=== PATIENT | male | born 1965 | race Caucasian/White ===

== ENCOUNTER 2020-07-16 10:23 | Outpatient (CLI) | payer OTHER, SELFPAY ==
--- NOTE | 2020-07-16 11:00 | USCV_ITS ---
Pierre Sigala Age: 54 Gender: M : 1965 Exam Date: 07/16/2020 10:52 Ordering Phys: Tavia Petersen MD ([email or web address]) Technologist: Alanna Reynolds Exam Location: [facility] [place] Indication: CHEST PAIN, HTN BP: / HR: 60 Rhythm: Sinus Technical Quality: Adequate MEASUREMENTS (Male / Female) Normal Values 2D ECHO LV Diastolic Diameter PLAX 4.5 cm 4.2 - 5.9 / 3.9 - 5.3 cm LV Systolic Diameter PLAX 2.6 cm IVS Diastolic Thickness 1.6 cm 0.6 - 1.0 / 0.6 - 0.9 cm IVS Systolic Thickness 1.7 cm LVPW Diastolic Thickness 1.3 cm 0.6 - 1.0 / 0.6 - 0.9 cm LVPW Systolic Thickness 2.3 cm LVOT Diameter 2.0 cm LV Ejection Fraction 2D Teich 74.1 % LA Diameter 3.3 cm LA Width 2.3 cm LA Height 5.4 cm RA Width 3.0 cm RA Height 5.1 cm Aorta at Sinotubular Diameter 3.4 cm M-MODE LV Diastolic Diameter MM 5.0 cm 4.2 - 5.9 / 3.9 - 5.3 cm LV Systolic Diameter MM 2.8 cm LV Ejection Fraction MM Teich 75.7 % IVS Diastolic Thickness MM 1.2 cm 0.6 - 1.0 / 0.6 - 0.9 cm IVS Systolic Thickness MM 1.9 cm LVPW Diastolic Thickness MM 1.2 cm 0.6 - 1.0 / 0.6 - 0.9 cm LVPW Systolic Thickness MM 1.9 cm Aortic Annulus Diameter 3.9 cm LA Ao Ratio MM 0.8 MV E Point Septal Separation 0.3 cm DOPPLER AV Peak Velocity 137.0 cm/s LVOT Peak Velocity 123.0 cm/s AV Area Cont Eq vti 3.2 cm squared AV Area Cont Eq pk 2.9 cm squared MV Peak Velocity 98.0 cm/s MV Area PHT 5.4 cm squared Mitral E to A Ratio 1.0 MV E' Velocity 52.0 cm/s Mitral E to MV E' Ratio 10.2 Mitral E to LV E' Lateral Ratio 9.2 Mitral E to LV E' Septal Ratio 11.4 TR Peak Velocity 80.0 cm/s TR Peak Gradient 2.6 mmHg Right Atrial Pressure 3.0 mmHg Pulmonary Artery Systolic Pressu 5.6 mmHg PV Peak Velocity 99.0 cm/s RV Acceleration Time 0.1 s RV Ejection Time 0.3 s RV AcT/ET 0.2 FINDINGS Left Ventricle Normal left ventricular size, systolic function and increased wall thickness, with no regional wall motion abnormalities. Mild concentric left ventricular hypertrophy. Left ventricular ejection fraction is estimated at 65 %. Normal diastolic function. Right Ventricle Normal right ventricular size and systolic function. Right ventricular systolic pressure 5.6 mmHg. Right Atrium Normal right atrial size. Left Atrium Normal left atrial size. Mitral Valve Structurally normal mitral valve. No mitral valve stenosis. No mitral valve regurgitation. Aortic Valve Structurally normal trileaflet aortic valve. No aortic valve stenosis. Mild aortic valve regurgitation. Tricuspid Valve Structurally normal tricuspid valve. No tricuspid valve stenosis. Trace tricuspid valve regurgitation. Pulmonic Valve Structurally normal pulmonic valve. Trace pulmonary valve regurgitation. Pericardium No pericardial effusion. Aorta Normal size aortic root and proximal ascending aorta. CONCLUSIONS 1. Normal left ventricular size, systolic function and increased wall thickness, with no regional wall motion abnormalities. Mild concentric left ventricular hypertrophy. Left ventricular ejection fraction is estimated at 65 %. Normal diastolic function. 2. Mild aortic valve regurgitation. 3. Normal pulmonary artery pressure. 4. No prior similar studies to compare. Tavia Petersen MD (Electronically Signed) Final Date: 18 July 2020 16:26 S
== END 2020-07-16 10:24 | disposition home or self-care (01) ==
PROVIDERS: PCP Family Medicine; Visit Provider Internal Medicine Cardiovascular Disease
DX: R07.9 Chest pain, unspecified (principal); I10 Essential (primary) hypertension; R00.2 Palpitations; I35.1 Nonrheumatic aortic (valve) insufficiency
CPT/HCPCS: 93306

== ENCOUNTER 2021-01-19 13:45 | Outpatient (CLI) | payer OTHER, SELFPAY ==
--- NOTE | 2021-01-19 13:57 | MR_ITS ---
WS: [id number] MRI RIGHT SHOULDER NONCONTRAST TECHNIQUE: Sagittal T2, coronal T1, T2 and proton density imaging. Axial gradient PDE imaging. CLINICAL INFORMATION: RIGHT SHOULDER IMPINGEMENT SYNDROME, RIGHT SHOULDER PAIN COMPARISON: None. FINDINGS: Some images degraded by patient motion. Mild degenerative arthritis AC joint with mild edema. Narrowi ng of the subacromial space. Slight subacromial spurring. Mild downsloping acromion. Slight impingeme nt on the distal supraspinatus with tendinopathy and chronic thinning. Tiny undersurface tear distal supraspinatus. Tiny insertional tear. Normal infraspinatus. Normal teres minor. Normal subscapularis. Distal subscapularis is normal in appearance. Biceps tendon is intact within the bicipital groove. Intra-articular biceps tendon appears intact. Biceps labral anchor appears intact. Degenerative frayi ng of the glenoid labrum. Normal bone marrow signal in the humerus and glenoid. Small amount of subac romial/subdeltoid fluid. Lobulated intraosseous ganglion cyst distal clavicle measuring 10 x 9 mm MR/MR shoulder RT wo con* [id number] IMPRESSION: 1. Moderate degenerative arthritis at the AC joint with edema and mild downslo ping of the acromion with subacromial spurring. Intraosseous ganglion cyst dist al clavicle measuring 10 x 9 mm. 2. Chronic thinning of the distal supraspinatus with tendinopathy. Tiny unders urface tear distally. Tiny insertional tear. 3. Rotator cuff is otherwise unremarkable. No full-thickness tears. 4. Biceps tendon intact within the bicipital groove. 5. Degenerative fraying of the glenoid labrum. 6. No other significant findings.
== END 2021-01-19 13:46 | disposition home or self-care (01) ==
PROVIDERS: PCP Family Medicine; Visit Provider Family Medicine
DX: M75.41 Impingement syndrome of right shoulder (principal); M25.511 Pain in right shoulder; M19.011 Primary osteoarthritis, right shoulder
CPT/HCPCS: 73221

== ENCOUNTER 2021-06-09 07:22 | Outpatient (CLI) | payer OTHER, SELFPAY ==
[2021-06-09 07:50] LABS: Basophils % 0.7 %; Eosinophils # 0.3 10^3/uL (0.0-0.8); Hematocrit 39.9 % (42.0-52.0); Hemoglobin 13.9 g/dL (11.7-16.6); Lymphocytes # 1.5 10^3/uL (0.8-4.8); Lymphocytes % 26.7 %; Mean Corpuscular HGB Conc 34.8 g/dL (30.0-36.0); Mean Corpuscular Hemoglobin 31.2 pg (28.0-34.0); Mean Corpuscular Volume 89.5 fl (80-94); Mean Platelet Volume 10.9 fL (7.4-10.4); Monocytes # 0.6 10^3/uL (0.2-0.9); Neutrophils % 57.1 %; Nucleated Red Blood Cells % 0 %; Platelet Count 142 10^3/cmm (130-400); Red Blood Count 4.46 10^6/uL (4.1-5.3); Red Cell Distribution Width 11.6 % (12.1-15.1); White Blood Count 5.6 10^3/uL (4.0-10.0)
[2021-06-09 08:16] LABS: Alanine Aminotransferase 39 U/L (0-41); Albumin Level 4.3 g/dL (3.5-5.2); Alkaline Phosphatase 60 IU/L (40-130); Anion Gap 16.9 (5-19); Aspartate Amino Transferase 42 U/L (0-40); Blood Urea Nitrogen 17 mg/dL (6-20); Calcium 9.4 mg/dL (8.5-10.5); Carbon Dioxide 23 mmol/L (22-29); Chloride 100 mmol/L (98-107); Chol HDL Ratio 3.55 mg/dL (1.0-5.00); Cholesterol 188 mg/dL (0-200); Globulin 2.9 g/dL (1.3-4.6); Glomerular Filtration Rate 78.2 mL/min (90-130); Glucose 121 mg/dL (65-115); HDL Cholesterol 53 mg/dL (60-100); LDL Cholesterol Calculated 63 mg/dL (50-129); LDL HDL Ratio 1.19 RATIO (0.00-3.22); Osmolality Calculated 285 mOsm/kg (285-295); Potassium 3.9 mmol/L (3.5-5.1); Sodium 136 mmol/L (136-145); Total Bilirubin 0.6 mg/dL (0.15-1.2); Total Protein 7.2 g/dL (6.6-8.7); Triglycerides 358 mg/dL (0-150)
== END 2021-06-09 07:23 | disposition home or self-care (01) ==
LOC: LAB 07:26
PROVIDERS: PCP Family Medicine; Visit Provider Internal Medicine Cardiovascular Disease
DX: E78.5 Hyperlipidemia, unspecified (principal); I10 Essential (primary) hypertension; I51.7 Cardiomegaly; R00.0 Tachycardia, unspecified; R07.9 Chest pain, unspecified
CPT/HCPCS: 36415; 80053; 80061; 85025

== ENCOUNTER 2021-07-14 08:39 | Outpatient (CLI) | payer OTHER, SELFPAY ==
--- NOTE | 2021-07-14 08:49 | US_ITS ---
WS: [id number] Complete ABDOMINAL ULTRASOUND HISTORY: ABNORMAL LIVER FUNCTION TESTS COMPARISON: None available. Liver: 15.3 cm in length. Mildly prominent liver with mild coarse echotexture. No mass or bile duct d ilatation. Portal Vein: Normal hepatopetal flow with monophasic waveform. Gallbladder: Normally distended with no gallstones, wall thickening or pericholecystic fluid. Gallbladder wall thickness: 0.1 cm. Pancreas: Normal size and echogenicity. CBD: 0.5 cm. Right kidney: 10.6 cm x 6.2 cm x 4.8 cm. No mass, cortical thickening or hydronephrosis. Left kidney: 13.6 cm x 4.7 cm x 5.1 cm. No mass, cortical thickening or hydronephrosis. Spleen: Normal size and echogenicity. Abdominal aorta and IVC are within normal limits. No ascites. US/US abdomen complete* [id number] IMPRESSION: 1. Mild hepatic steatosis. No bile duct dilatation or mass. 2. Negative gallbladder. 3. Otherwise unremarkable abdomen ultrasound.
== END 2021-07-14 08:40 | disposition home or self-care (01) ==
PROVIDERS: PCP Family Medicine; Visit Provider Family Medicine
DX: R94.5 Abnormal results of liver function studies (principal); K76.0 Fatty (change of) liver, not elsewhere classified
CPT/HCPCS: 76700

== ENCOUNTER 2021-08-01 12:02 | Emergency (ER) | payer OTHER, SELFPAY ==
[2021-08-01 12:08] VITALS: PULSE 54; RESP 18; TEMP 37; O2SAT 98; BMI 30.7
[2021-08-01 12:20] VITALS: BP 168/120
--- NOTE | 2021-08-01 13:24 | W.ED.CHESTPA ---
HPI - Chest Pain General: Chief Complaint: Chest Pain Stated Complaint: CP Time Seen by Provider: 08/01/21 13:24 History of Present Illness: Mr. Sigala is a 55-year-old gentleman with significant past medical history of hypertension, hyperlipidemia, and history of chest pain who presents to the emergency department due to chest pain. He reports pressure in the left lower chest that started with exertion while at work. He notes associated diaphoresis, shortness of breath, nausea. He reports symptoms at worst were moderate to severe however subsequently improved. Over the past few days he has noticed more frequent episodes though does have a history of similar episodes overall in the past. Each time he does notice his blood pressure is higher than normal and this does seem to correlate with symptoms though not reliably. No other specific changes in health, exacerbating, or alleviating factors identified. Onset (ago): day(s) Timing of current episode: constant Prior episodes: Yes Onset: during exertion Pain location: left chest Severity: moderate Quality: tightness Relieving factors: nothing Exacerbating factors: nothing Review of Systems General: Reports: 10 or more systems reviewed and unremarkable except in HPI and below PFSH ED PFSH: Medical History Hyperlipidemia Hypertension Family History Other FH: CABG (coronary artery bypass surgery) Sleep apnea Denies family history of Diabetes CAD (coronary artery disease) Stroke Social History Smoking and tobacco status: never smoked Alcohol intake: current Alcohol intake frequency: 3 or more drinks per day Physical Exam Const: COMMON NORMALS: alert GENERAL APPEARANCE: cooperative and well developed HENMT: COMMON NORMALS: normocephalic and atraumatic HEAD & SCALP: normocephalic and atraumatic Eye: COMMON NORMALS: conjunctivae normal CONJUNCTIVA: Yes conjunctivae normal SCLERA: sclerae normal Neck/C-Spine: COMMON NORMALS: supple GENERAL: Yes trachea midline Resp: COMMON NORMALS: clear to auscultation bilaterally EFFORT & INSPECTION: Yes able to speak in complete sentences AUSCULTATION: clear to auscultation bilaterally Cardio: COMMON NORMALS: regular rate and regular rhythm RATE: regular rate RHYTHM: regular rhythm GI: COMMON NORMALS: Soft to palpation PALPATION: Yes Soft to palpation and No Tenderness to palpation present (GI) PERCUSSION: normal to percussion Extremity: GENERAL: Yes normal exam except as noted and No edema Neuro: COMMON NORMALS: moves all extremities SENSORIUM/ORIENTATION: Yes alert and No Orientation impaired Psych: COMMON NORMALS: mental status grossly normal and Normal thought process present THOUGHT PROCESS: Normal thought process present Course ED course: - Patient was seen and evaluated by me at bedside - Patient placed on cardiac monitors, IV access obtained - Initial evaluation notable for exam as above. - Labs and xrays personally interpreted by me. EKG reviewed with sinus rhythm showing nonspecific ST segment abnormalities. No STEMI. -Aspirin given - Labs notable for no leukocytosis, normal hemoglobin. No acute metabolic derangement to explain symptoms. Negative delta troponin. - Imaging notable for no lobar consolidation or pneumothorax - Upon serial reexamination after treatment the patient was similar with continued improvement. - Based on patient history, evaluation, and testing as interpreted the most likely cause of the patient's condition is chest pain - The results of ED evaluation were discussed with the patient including possible disposition options. I discussed heart heart score restratification and recommended admission as the safest option given moderate risk heart score however the patient preferred outpatient follow-up. I discussed prescriptions and/or symptomatic cares (if applicable) including appropriate and responsible use, followup plan, and return precautions. The patient verbalized understanding and felt safe for discharge. - Patient discharged in satisfactory condition. Note: Click bubbles or prepopulated palacios in note writing are used for assistance with data collection and billing and are inherently more limited than narrative and other text portions of this note. Please use narrative for additional clinical history and defer to narrative/free test for any case of contradictory information. If information appears in only free text or click bubble it should be considered present or absent as reported. Please contact note financial writer for clarifications of clinical information or contradictory information. MDM is a brief summary, contradictory or erroneous seeming information should be clarified and full note should be reviewed. Vital Signs: Vital signs: Vital Signs Temperature 98.6 F 08/01/21 12:08 Pulse Rate 88 08/01/21 18:02 Respiratory Rate 18 08/01/21 18:02 Blood Pressure 179/96 08/01/21 18:02 Pulse Oximetry 96 08/01/21 18:02 MDM - Chest Pain Medical Decision Making 55-year-old gentleman presenting with more frequent chest pain than baseline. Negative delta troponin, negative ED evaluation for obvious cause. Offered admission which the patient declined in favor of outpatient follow-up. Satisfactory for discharge with additional antihypertensive. Medical Records I reviewed the patient's medical records. Lab Data I reviewed the patient's lab results. : 08/01/21 13:30 08/01/21 14:36 Radiology Impressions Chest X-Ray 08/01/21 13:28 Impression: Old granulomatous disease. Laboratory Results WBC 7.7 10^3/uL (4.0-10.0) 08/01/21 13:30 RBC 4.72 10^6/uL (4.1-5.3) 08/01/21 13:30 Hgb 14.7 g/dL (11.7-16.6) 08/01/21 13:30 Hct 46.3 % (42.0-52.0) 08/01/21 13:30 MCV 98.1 fl (80-94) H 08/01/21 13:30 MCH 31.1 pg (28.0-34.0) 08/01/21 13:30 MCHC 31.7 g/dL (30.0-36.0) 08/01/21 13:30 RDW 18.6 % (12.1-15.1) H 08/01/21 13:30 Plt Count 180 10^3/cmm (130-400) 08/01/21 13:30 MPV 10.5 fL (7.4-10.4) H 08/01/21 13:30 Neut % (Auto) 67.8 % 08/01/21 13:30 Lymph % (Auto) 19.8 % 08/01/21 13:30 [place] % (Auto) 9.7 % 08/01/21 13:30 Eos % (Auto) 1.6 % 08/01/21 13:30 Baso % (Auto) 0.5 % 08/01/21 13:30 Neut # (Auto) 5.24 10^3/uL (1.8-7.7) 08/01/21 13:30 Lymph # (Auto) 1.5 10^3/uL (0.8-4.8) 08/01/21 13:30 [place] # (Auto) 0.8 10^3/uL (0.2-0.9) 08/01/21 13:30 Eos # (Auto) 0.1 10^3/uL (0.0-0.8) 08/01/21 13:30 Baso # (Auto) 0.0 10^3/uL (0.0-0.1) 08/01/21 13:30 Nucleated RBC % (auto) 0 % 08/01/21 13:30 Nucleated RBCs # 0.0 /100WBC 08/01/21 13:30 Sodium 136 mmol/L (136-145) 08/01/21 14:36 Potassium 3.6 mmol/L (3.5-5.1) 08/01/21 14:36 Chloride 99 mmol/L (98-107) 08/01/21 14:36 Carbon Dioxide 22 mmol/L (22-29) 08/01/21 14:36 Anion Gap 18.6 (5-19) 08/01/21 14:36 BUN 14 mg/dL (6-20) 08/01/21 14:36 Creatinine 0.8 mg/dL (0.7-1.2) 08/01/21 14:36 GFR Calculation 101.1 mL/min (90-130) 08/01/21 14:36 Glucose 102 mg/dL (65-115) 08/01/21 14:36 Calculated Osmolality 283 mOsm/kg (285-295) L 08/01/21 14:36 Calcium 8.6 mg/dL (8.5-10.5) 08/01/21 14:36 Total Bilirubin 0.6 mg/dL (0.15-1.2) 08/01/21 14:36 AST 38 U/L (0-40) 08/01/21 14:36 ALT 28 U/L (0-41) 08/01/21 14:36 Alkaline Phosphatase 68 IU/L (40-130) 08/01/21 14:36 Troponin T Baseline 40 ng/L (0-15) H 08/01/21 14:36 Troponin T 120 Minute 39.78 ng/L (0-15) H 08/01/21 16:14 Delta Troponin T -0.22 ABS# (0-10) L 08/01/21 16:14 NT-Pro-B Natriuret Pep 206 pg/mL (0-125) H 08/01/21 14:36 Total Protein 6.9 g/dL (6.6-8.7) 08/01/21 14:36 Albumin 4.5 g/dL (3.5-5.2) 08/01/21 14:36 Globulin 2.4 g/dL (1.3-4.6) 08/01/21 14:36 Lipase 39 U/L (13-60) 08/01/21 14:36 Discharge Plan Discharge Patient Disposition: Home Clinical Impression: Chest pain Condition: Stable Prescriptions: New amlodipine 5 mg tablet 5 mg PO DAILY Qty: 30 0RF No Action nitroglycerin [Nitrostat] 0.4 mg tablet, sublingual 0.4 mg sublingual Q5M PRN (Reason: chest pain) Qty: 25 1RF Rx Instructions: do not exceed 3 doses per episode atorvastatin 40 mg tablet 40 mg PO DAILY Qty: 90 2RF lisinopril 10 mg tablet 10 mg PO BID Qty: 180 2RF metoprolol tartrate 50 mg tablet 50 mg PO .COMPLEX Qty: 135 2RF Rx Instructions: 1 TAB AM, 1/2 TAB PM Tylenol 325 mg Tablet 325 mg PO QID PRN (Reason: Pain) 0RF aspirin 325 mg Tablet 325 mg PO Q4H PRN (Reason: Pain) 0RF Rx Instructions: while awake Multi M Vitamin Tablet 1 tab PO DAILY 0RF omeprazole 20 mg Capsule,Delayed Release(Dr/Ec) 20 mg PO DAILY 0RF Discharge Orders: Discharge ED (Routine); Ordered 08/01/21 Ordered By: Fran Jay Referrals: Robert Berry, [Primary Care Provider] - Discharge Diet: Usual diet Discharge Activity: Resume usual activity Patient Instructions: Amlodipine (By mouth), Chest Pain (ED) Activity Restrictions/Additional Instructions: Thank you for visiting the emergency department. You were seen and evaluated for chest pain. The exact cause of your symptoms is unclear though as discussed you are moderate risk by heart score and do require further cardiac evaluation as scheduled by cardiology. Regarding your hypertension I will add a antihypertensive medication to your current regimen. Please continue to take all other medications as prescribed. Please return to the emergency department for worsening symptoms or anything else that you are concerned about and feel needs emergency department evaluation. Coding Level of Care Code ED Supervisor [employer] for Anton Sanchez
--- NOTE | 2021-08-01 13:28 | ECG_ITS ---
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 Measurements Intervals [place] Rate: 57 P: 39 RI: 194 QRS: 15 QRSD: 93 T: 32 QT: 416 QTc: 406 Interpretive Statements SINUS BRADYCARDIA Compared to ECG 10/02/2018 17:12:55 Sinus rhythm no longer present Electronically Signed On 08-01-2021 22:05:12 CDT by Fredo Camara M.D. [id number]
--- NOTE | 2021-08-01 13:28 | XR_ITS ---
WS: [id number] Portable AP upright chest, 08/01/2021 Clinical Data: chest pain Comparison: Portable chest, 10/02/2018. Findings: No nodules, masses or effusions are seen. The heart is normal. The pulmonary vascularity is not increased. No pneumonia or pneumothorax is seen. There is a calcified granuloma at the right tra cheobronchial junction and small granulomas in the right hilum and inferior medial right lung. Monito r leads are on the chest wall. XR/XR chest 1V portable [id number] Impression: Old granulomatous disease.
[2021-08-01] MEDS: aspirin 81 mg Chew Tablet 324 MG PO (13:33)
[2021-08-01 13:40] LABS: Basophils % 0.5 %; Eosinophils # 0.1 10^3/uL (0.0-0.8); Eosinophils % 1.6 %; Hematocrit 46.3 % (42.0-52.0); Hemoglobin 14.7 g/dL (11.7-16.6); Lymphocytes # 1.5 10^3/uL (0.8-4.8); Lymphocytes % 19.8 %; Mean Corpuscular HGB Conc 31.7 g/dL (30.0-36.0); Mean Corpuscular Hemoglobin 31.1 pg (28.0-34.0); Mean Corpuscular Volume 98.1 fl (80-94); Mean Platelet Volume 10.5 fL (7.4-10.4); Monocytes # 0.8 10^3/uL (0.2-0.9); Monocytes % 9.7 %; Neutrophils # 5.24 10^3/uL (1.8-7.7); Neutrophils % 67.8 %; Nucleated Red Blood Cells % 0 %; Platelet Count 180 10^3/cmm (130-400); Red Blood Count 4.72 10^6/uL (4.1-5.3); Red Cell Distribution Width 18.6 % (12.1-15.1); White Blood Count 7.7 10^3/uL (4.0-10.0)
[2021-08-01 15:11] VITALS: BP 167/107; PULSE 61; RESP 16; O2SAT 97
[2021-08-01 15:15] LABS: Troponin(5th) Baseline 40 ng/L (0-15)
[2021-08-01 15:48] LABS: Alanine Aminotransferase 28 U/L (0-41); Albumin Level 4.5 g/dL (3.5-5.2); Alkaline Phosphatase 68 IU/L (40-130); Anion Gap 18.6 (5-19); Aspartate Amino Transferase 38 U/L (0-40); Blood Urea Nitrogen 14 mg/dL (6-20); Calcium 8.6 mg/dL (8.5-10.5); Carbon Dioxide 22 mmol/L (22-29); Chloride 99 mmol/L (98-107); Creatinine Clr Calc Pharmacy 128.5304; Globulin 2.4 g/dL (1.3-4.6); Glomerular Filtration Rate 101.1 mL/min (90-130); Glucose 102 mg/dL (65-115); Lipase 39 U/L (13-60); NT Pro B Type Natriuretic Pept 206 pg/mL (0-125); Osmolality Calculated 283 mOsm/kg (285-295); Potassium 3.6 mmol/L (3.5-5.1); Sodium 136 mmol/L (136-145); Total Bilirubin 0.6 mg/dL (0.15-1.2); Total Protein 6.9 g/dL (6.6-8.7)
[2021-08-01 17:00] LABS: Troponin 5 2HR 39.78 ng/L (0-15); Troponin 5 2HR Delta -0.22 ABS# (0-10)
[2021-08-01 18:02] VITALS: BP 179/96; PULSE 88; RESP 18; O2SAT 96
[2021-08-01] MEDS: amlodipine 5 mg Tablet PO (18:05)
--- NOTE | 2021-08-01 19:28 | ECG_ITS ---
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 Measurements Intervals [place] Rate: 56 P: 33 UT: 198 QRS: 20 QRSD: 96 T: 29 QT: 436 QTc: 422 Interpretive Statements SINUS BRADYCARDIA Compared to ECG 08/01/2021 12:13:47 No significant changes Electronically Signed On 08-01-2021 22:12:27 CDT by Fredo Camara M.D. [id number]
== END 2021-08-01 18:12 | disposition home or self-care (01) ==
PROVIDERS: Emergency Provider Emergency Medicine; PCP Family Medicine
DX: R07.9 Chest pain, unspecified (principal); I10 Essential (primary) hypertension; E78.5 Hyperlipidemia, unspecified
CPT/HCPCS: 36415; 71045; 80053; 83690; 83880; 84484; 85025; 93005; 99283

== ENCOUNTER 2021-08-11 08:52 | Outpatient (CLI) | payer OTHER, SELFPAY ==
[2021-08-11 09:33] VITALS: BMI 29.4
--- NOTE | 2021-08-11 09:34 | ECG_ITS ---
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 Interpretive Statements NAME OF STUDY: TREADMILL STRESS ECHOCARDIOGRAM INDICATION: Chest Pain PROCEDURE: At the baseline, the patient's blood pressure was 167/111 mmHg, oxygen saturation 94% with a heart rate of 69 bpm. The baseline electrocardiogram showed normal sinus rhythm, normal axis with normal ST and T's. The patient exercised for 6 minutes 59 seconds on a standard Davie protocol. Patient attained a maximum heart rate of 165 beats per minute(98% of the maximum predicted heart rate) with a blood pressure at the peak exercise of 208/91 mm Hg. The EKG at the peak exercise revealed sinus tachycardia with no significant ST-T wave changes. Patient did not have any chest pain or any significant EKG changes with the exercise. The study was terminated due to exertional fatigue and shortness of breath. Patient developed intraprocedural shortness of breath that resolved by discharge. During the recovery phase, there were no new changes. Blood pressure at the end of the recovery phase was 152/83 mm Hg with a heart rate of 97 beats per minute and oxygen saturation 94%. Echocardiographic pictures were taken at the baseline, immediately following the peak exercise and during the recovery phase. CONCLUSION: 1. Normal EKG response to treadmill exercise. 2. No exercise-induced chest pain or cardiac arrhythmia. 3. Good exercise tolerance, attained a maximum of 10.2 METs. Maximum VO2 of 35.7 mL/kg/min. 4. Please see separate report for the echocardiographic response to exercise. Electronically Signed On 08-21-2021 13:45:26 CDT by Tavia Petersen M.D. [id number]
--- NOTE | 2021-08-11 10:14 | USCV_ITS ---
Stress Echo Pierre Sigala Age: 55 Gender: M : 1965 Exam Date: 08/11/2021 10:18 Ordering Phys: Tavia Petersen MD ([email or web address]) Technologist: Virginie Rosen Exam Location: [facility] – [place] Indication: CHEST PAIN Rhythm: Sinus Patient History: Chest pain Cardiac Medications: NONE Medications in past 24 hours: NONE Contrast: Stress Results Protocol: Davie Total dose(mL): Exercise Duration (min:sec): 06:59 METS: 10.2 Resting HR: 67 Resting BP: 167 / 111 Peak HR: 167 Peak BP: 208 / 111 Max Predicted HR: 167 100 % Max Predicted HR Target HR: 142 Double Product: 49989 Stress Summary: The patient's target heart rate was achieved The patient exhibited a hypertensive response with stress BP Response: Abnormal increase in BP during/after stress Reason for Termination: Test terminated after reaching target heart rate (85% max predicted) Cardiac Symptoms: Short of Breath ECG Analysis Resting ECG: Stress ECG: Arrhythmia: MEASUREMENTS (Male/Female) Normal Values FINDINGS PROCEDURE: At the baseline, the patient's blood pressure was [167/111] mmHg with a heart rate of 67 bpm. The patient exercised for [6 minutes 59 seconds] on a standard Davie protocol. Patient attained a maximum heart rate of [167 ] beats per minute(98% of the maximum predicted heart rate) with a blood pressure at the peak exercise of [208/98] mm Hg. During the recovery phase, there were no new changes. Echocardiographic pictures were taken at the baseline, immediately following the peak exercise and during the recovery phase. Baseline echocardiogram: Normal left ventricular size and systolic function with ejection fraction estimated at [ 65]%. No regional wall motion abnormalities. Normal right ventricle size and systolic function. Normal left and right atrial size. No pericardial effusion. No intracardiac masses. Normal-sized aortic root and proximal ascending aorta. Peak exercise echocardiogram: There is possible mild hypokinesis of basal to mid anterolateral wall. Recovery echocardiogram: Left ventricular systolic function normalizes. No regional wall motion abnormalities. CONCLUSIONS 1. This is a treadmill stress echocardiogram. 2. Good exercise tolerance, attained a maximum of 10.2 METs. Double product of 34,737. 3. Baseline hypertension with hypertensive response to exercise and normal heart rate response to exercise. 4. There seems to be mild hypokinesis of basal to mid anterolateral wall on stress images. 5. No EKG changes with treadmill exercise. Refer to separate report for details. Tavia Petersen MD (Electronically Signed) Final Date: 21 Aug 2021 13:48 S
[2021-08-11 10:46] VITALS: BP 158/73; PULSE 73
== END 2021-08-11 08:53 | disposition home or self-care (01) ==
PROVIDERS: PCP Family Medicine; Visit Provider Internal Medicine Cardiovascular Disease
DX: R07.9 Chest pain, unspecified (principal); I10 Essential (primary) hypertension; E78.5 Hyperlipidemia, unspecified
CPT/HCPCS: 93017; 93350

== ENCOUNTER 2021-11-02 08:45 | Day surgery (SDC) | payer OTHER, SELFPAY ==
[2021-10-31 10:07] VITALS: BMI 30.1
[2021-11-02 09:06] VITALS: BP 146/119; PULSE 80; RESP 18; TEMP 36.8; O2SAT 96
[2021-11-02] MEDS: sodium chloride 0.9% 1,000 ML 30 ML IV (09:34)
--- NOTE | 2021-11-02 09:59 | P.HP_ITS ---
Same Day Surgery H&P Indication for Procedure/HPI DATE OF PROCEDURE: November 02, 2021 CHIEF COMPLAINT/INDICATIONFOR SURGICAL PROCEDURE: EGD/colonoscopy PREOP DIAGNOSIS: diagnostic PLANNED PROCEDURE: Operation Date: 11/02/21 11:00 Proposed Procedures p 11867 EGD, 98642 Colon K21.9, Z12.11(Not Applicable) - Diego Perdomo MD s Colonoscopy(Not Applicable) - Diego Perdomo MD Medications/Allergies* Home Medications Medication Instructions Recorded Confirmed Type acetaminophen 325 mg tablet 325 mg PO QID PRN Pain 08/01/21 10/31/21 History (Tylenol) multivitamin with iron-mineral 1 tab PO DAILY 08/01/21 10/31/21 History diphenhydramine HCl 25 mg tablet 25 mg PO DAILY PRN Allergy Symptoms 08/23/21 10/31/21 History (Benadryl Allergy) pantoprazole 40 mg tablet,delayed 40 mg PO DAILY 08/23/21 10/31/21 History release Allergies/Adverse Reactions Allergy/AdvReac Type Severity Reaction Status Date / Time peanut Allergy Unknown unknown Verified 11/02/21 09:04 penicillin V Allergy Unknown unknown Verified 11/02/21 09:04 Penicillins Allergy Unknown Verified 11/02/21 09:04 Current Medications: Generic Name Dose Route Start Last Admin Trade Name Freq PRN Reason Stop Dose Admin Sodium Chloride 1,000 mls @ 30 mls/hr 11/02/21 09:00 11/02/21 09:34 Sodium Chloride 0.9% IV 11/03/21 08:59 30 mls/hr .Q24H CRUZ Administration Pertinent History/Comorbid Conditions* Medical History (Updated 08/23/21 @ 10:20 by Diego Perdomo MD) GERD (gastroesophageal reflux disease) Hyperlipidemia Hypertension Surgical History (Updated 08/23/21 @ 10:19 by Diego Perdomo MD) History of surgery on arm History of tonsillectomy Family History (Updated 06/10/20 @ 10:45 by Sarah Muniz RN) Sleep apnea FH: CABG (coronary artery bypass surgery) Denies family history of Diabetes CAD (coronary artery disease) Stroke Social History Smoking and tobacco status: never smoked Alcohol intake: current Alcohol intake frequency: 3 or more drinks per day Pertinent Exam Findings alert, oriented x 3 and regular rate & rhythm Recommendations Surgery/Procedure today Coding Level of Care Code Acute Commissioning Specialist for Chg Fwd
--- NOTE | 2021-11-02 10:05 | ANES.PREANE2 ---
Pre-Anesthetic Assessment Height/Weight: Height 1.78 m Weight 95.254 kg Temp Pulse Resp BP Pulse Ox O2 Del Method 98.2 F 80 18 146/119 96 11/02/21 09:06 11/02/21 09:06 11/02/21 09:06 11/02/21 09:06 11/02/21 09:06 11/02/21 09:06 Preop Diagnosis: diagnostic Operation Date: 11/02/21 11:00 Proposed Procedures p 7[address]41 EGD, [id number] Colon K21.9, Z12.11(Not Applicable) - Diego Perdomo MD s Colonoscopy(Not Applicable) - Diego Perdomo MD Familial anesthetic complications: none Was Beta Christiano taken within 24 hours: Yes Was Clonidine taken within 24 hours: N/A Last intake: Intake Last Liquid Date 11/02/21 Last Liquid Time 08:00 Last Solid Date 10/31/21 Last Solid Time 17:00 Social No alcohol and No tobacco Exam alert, oriented x 3, clear to auscultation bilaterally and regular rate & rhythm Airway Submandibular: within normal limits Cervical ROM: within normal limits Mallampati: Class II Dentition: chipped Pulmonary Sleep Apnea CV/HEM Hypertension METS > 4 TTE 08/28 CONCLUSIONS ?1. This is a treadmill stress echocardiogram.? ?2.? Good exercise tolerance, attained a maximum of 10.2 METs.? ?Double product of 34,737. ?3.? Baseline hypertension with hypertensive response to exercise ?and normal heart rate response to exercise. ?4.? There seems to be mild hypokinesis of basal to mid ?anterolateral wall on stress images. ?5.? No EKG changes with treadmill exercise.? Refer to separate ?report for details. Stress Test 08/28 CONCLUSION: 1. Normal EKG response to treadmill exercise. 2. No exercise-induced chest pain or cardiac arrhythmia. 3. Good exercise tolerance, attained a maximum of 10.2 METs.? Maximum VO2 of 35.7 mL/kg/min. 4. Please see separate report for the echocardiographic response to exercise None reported Hepatic None reported GI Gastroesophageal Reflux Disease Metabolic None reported Musc/skel None reported Neuropsych Anxiety Anesthetic Plan ASA status: 2 Anesthesia: Anesthesia Evaluation, General and MAC Other: I discussed with the patient risks, goals, and benefits of MAC and general anesthesia. We discussed spectrum of MAC anesthesia including conversion to general as well as possibility of recall of intraoperative stimuli including discomfort/pain. Patient agrees to proceed with MAC. Risk of > 500 ml blood loss (7ml/kg in children): No Medications/Allergies Home Medications Medication Instructions Recorded Confirmed Last Taken Type nitroglycerin 0.4 mg sublingual 0.4 mg sublingual Q5M PRN chest 06/08/21 10/31/21 Unknown Rx tablet (Nitrostat) pain #25 tabs atorvastatin 40 mg tablet 40 mg PO DAILY #90 tabs 06/23/21 10/31/21 11/01/21 Rx lisinopril 10 mg tablet 10 mg PO BID #180 tabs 06/23/21 10/31/21 11/01/21 Rx metoprolol tartrate 50 mg tablet 50 mg PO .COMPLEX #135 tabs 06/23/21 10/31/21 11/02/21 08:00 Rx acetaminophen 325 mg tablet 325 mg PO QID PRN Pain 08/01/21 10/31/21 11/01/21 History (Tylenol) multivitamin with iron-mineral 1 tab PO DAILY 08/01/21 10/31/21 11/01/21 History amlodipine 2.5 mg tablet 2.5 mg PO DAILY #90 tabs 08/23/21 10/31/21 11/02/21 08:00 Rx diphenhydramine HCl 25 mg tablet 25 mg PO DAILY PRN Allergy Symptoms 08/23/21 10/31/21 11/01/21 History (Benadryl Allergy) pantoprazole 40 mg tablet,delayed 40 mg PO DAILY 08/23/21 10/31/21 11/02/21 08:00 History release Allergies Allergy/AdvReac Type Severity Reaction Status Date / Time peanut Allergy Unknown unknown Verified 11/02/21 09:04 penicillin V Allergy Unknown unknown Verified 11/02/21 09:04 Penicillins Allergy Unknown Verified 11/02/21 09:04 Current Medications Generic Name Dose Route Start Last Admin Trade Name Freq PRN Reason Stop Dose Admin Sodium Chloride 1,000 mls @ 30 mls/hr 11/02/21 09:00 11/02/21 09:34 Sodium Chloride 0.9% IV 11/03/21 08:59 30 mls/hr .Q24H CRUZ Administration PFSH Anesthesia Medical History GERD (gastroesophageal reflux disease) Hyperlipidemia Hypertension Surgical History History of surgery on arm History of tonsillectomy Family History Other FH: CABG (coronary artery bypass surgery) Sleep apnea Denies family history of Diabetes CAD (coronary artery disease) Stroke Social History Smoking and tobacco status: never smoked Alcohol intake: current Alcohol intake frequency: 3 or more drinks per day Data Anesthesia Cardiac Studies: Echocardiogram Ultrasound 07/16/20 Stress Echocardiogram 08/11/21
[2021-11-02 10:30] VITALS: BP 108/59; PULSE 79; RESP 16; TEMP 36.4; O2SAT 94
[2021-11-02 10:45] VITALS: BP 136/100; PULSE 73; RESP 16; TEMP 36.6; O2SAT 94
--- NOTE | 2021-11-02 14:40 | ANE.PACU2 ---
Inpatient post-anesthesia follow up: Airway intact: Yes Vital signs: Temperature 97.8 F Pulse Rate 73 Respiratory Rate 16 Blood Pressure 136/100 Pulse Oximetry 94 Oxygen Delivery Me thod Room Air Oxygen Flow Rate 4 Fraction of Inspir ed Oxygen Hydration adequate: Yes Nausea and vomiting: No Pain level: 1 Mental status: Baseline
== END 2021-11-02 11:15 | disposition home or self-care (01) ==
PROVIDERS: PCP Family Medicine; Visit Provider Surgery
PROC: 0DJ08ZZ Inspection of Upper Intestinal Tract, Via Natural or Artificial Opening Endoscopic (ICD-10-PCS; CPT 43235; principal; 2021-11-02 11:00)
PROC: 0DJD8ZZ Inspection of Lower Intestinal Tract, Via Natural or Artificial Opening Endoscopic (ICD-10-PCS; CPT 45378; 2021-11-02 11:00)
DX: Z12.11 Encounter for screening for malignant neoplasm of colon (principal); K21.9 Gastro-esophageal reflux disease without esophagitis; K57.30 Diverticulosis of large intestine without perforation or abscess without bleeding; K64.8 Other hemorrhoids; D12.0 Benign neoplasm of cecum; K29.50 Unspecified chronic gastritis without bleeding; G47.30 Sleep apnea, unspecified; E78.5 Hyperlipidemia, unspecified; I10 Essential (primary) hypertension
CPT/HCPCS: 43239; 45380; 88305; J2704; J3010; J7030

== ENCOUNTER → 2022-06-23 10:39 | Outpatient (BNVA) | payer MEDICAID, SELFPAY | PROVIDERS: PCP Family Medicine; Visit Provider Family Medicine | DX: Z12.5 Encounter for screening for malignant neoplasm of prostate (principal); E78.5 Hyperlipidemia, unspecified; I10 Essential (primary) hypertension | CPT/HCPCS: 80053; 80061; 83721; 85025; G0103 ==

== ENCOUNTER → 2022-07-03 15:46 | Outpatient (BNVA) | payer MEDICAID, SELFPAY | PROVIDERS: PCP Family Medicine; Visit Provider Specialist | DX: I10 Essential (primary) hypertension (principal); R07.9 Chest pain, unspecified; E78.5 Hyperlipidemia, unspecified | CPT/HCPCS: 36415; 85025 ==

== ENCOUNTER → 2023-01-25 10:19 | Outpatient (BNVA) | payer OTHER, MEDICAID, SELFPAY | PROVIDERS: PCP Family Medicine; Visit Provider Family Medicine | DX: E78.5 Hyperlipidemia, unspecified (principal); I10 Essential (primary) hypertension; I51.7 Cardiomegaly; K92.1 Melena; Z13.6 Encounter for screening for cardiovascular disorders; R29.898 Other symptoms and signs involving the musculoskeletal system; N48.6 Induration penis plastica | CPT/HCPCS: 80053; 80061 ==

== ENCOUNTER 2023-02-09 08:59 | Outpatient (CLI) | payer OTHER, MEDICAID, SELFPAY ==
--- NOTE | 2023-02-09 09:30 | USCV_ITS ---
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 Dr Carlos Monzon MD [facility] (Electronically Signed) Final Date: 12 February 2023 09:20 S
== END 2023-02-09 09:00 | disposition home or self-care (01) ==
LOC: RAD 09:00
PROVIDERS: PCP Family Medicine; Visit Provider Family Medicine
DX: R29.898 Other symptoms and signs involving the musculoskeletal system (principal)
CPT/HCPCS: 93922

== ENCOUNTER 2023-02-16 06:01 | Outpatient (CLI) | payer OTHER, MEDICAID, SELFPAY ==
--- NOTE | 2023-02-16 06:15 | US_ITS ---
WS: [id number] RIGHT UPPER QUADRANT ULTRASOUND HISTORY: hst of alcohol abuse, elevated liver functions COMPARISON: 07/14/2021 Liver: 19.2 cm in length. Liver is slightly increased in size since the prior study from 07/14/2021. Co arse echotexture throughout with variable echogenicity. No mass or bile duct dilatation. Portal Vein: Normal hepatopetal flow with monophasic waveform. Gallbladder: Normally distended gallbladder with no stones or wall thickening. CBD: 0.4 cm Pancreas: Poorly visualized pancreas due to body habitus. Right kidney: 11.7 cm in length. Normal size and echogenicity. No hydronephrosis or mass. Aorta and IVC: Unremarkable abdominal aorta and IVC. No ascites. IMPRESSION: 1. Slight increase in size of the liver since 07/14/2021. Moderate hepatomegaly and hepatic steatosis. 2. Normal gallbladder. 3. No bile duct dilatation.
== END 2023-02-16 06:02 | disposition home or self-care (01) ==
LOC: RAD 06:01
PROVIDERS: PCP Family Medicine; Visit Provider Family Medicine
DX: F10.10 Alcohol abuse, uncomplicated (principal); K75.81 Nonalcoholic steatohepatitis (NASH); R16.0 Hepatomegaly, not elsewhere classified
CPT/HCPCS: 76705

== ENCOUNTER → 2023-07-12 08:44 | Outpatient (BNVA) | payer MEDICAID, SELFPAY | PROVIDERS: PCP Family Medicine; Visit Provider Family Medicine | DX: Z13.6 Encounter for screening for cardiovascular disorders (principal); I10 Essential (primary) hypertension; R00.0 Tachycardia, unspecified; E78.5 Hyperlipidemia, unspecified | CPT/HCPCS: 80053; 80061; 83036 ==

== ENCOUNTER 2023-08-02 08:09 | Outpatient (CLI) | payer MEDICAID, SELFPAY ==
--- NOTE | 2023-08-02 08:45 | US_ITS ---
WS: [id number] RENAL ULTRASOUND HISTORY: renal insuff COMPARISON: None available. TECHNIQUE: 2-D and color Doppler imaging of the kidney submitted. Right kidney: 12.9 cm x 5.0 cm x 5.8 cm. Cortex: 1.9 cm Normal echogenicity with no hydronephrosis or mass. Left kidney: 11.5 cm x 5.5 cm x 5.1 cm. Cortex: 1.2 cm Normal echogenicity with no hydronephrosis or mass. Aorta: Normal. Urinary Bladder: Normal distention. IMPRESSION: Normal renal ultrasound.
== END 2023-08-02 08:10 | disposition home or self-care (01) ==
LOC: RAD 08:09
PROVIDERS: PCP Family Medicine; Visit Provider Family Medicine
DX: N28.9 Disorder of kidney and ureter, unspecified (principal)
CPT/HCPCS: 76770

== ENCOUNTER → 2023-11-16 10:45 | Outpatient (BNVA) | payer MEDICAID, SELFPAY | PROVIDERS: PCP Family Medicine; Visit Provider Emergency Medicine | DX: A93.8 Other specified arthropod-borne viral fevers (principal); W57.XXXA Bitten or stung by nonvenomous insect and other nonvenomous arthropods, initial encounter | CPT/HCPCS: 80053; 82785; 85007; 85027; 86001; 86003; 86008; 86618; 86666; 86757 ==

== ENCOUNTER 2023-11-24 14:59 | Emergency (ER) | payer MEDICAID, SELFPAY ==
[2023-11-24 15:08] VITALS: BP 112/78; PULSE 72; RESP 17; TEMP 36.6; O2SAT 96; BMI 31.4
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
[2023-11-24] MEDS: iohexol 350 mg/mL 500 mL Btl (per mL) IV (15:58)
[2023-11-24 17:56] VITALS: BP 112/78; O2SAT 96
== END 2023-11-24 17:57 | disposition home or self-care (01) ==
PROVIDERS: Emergency Provider Emergency Medicine; PCP Family Medicine
DX: S10.93XA Contusion of unspecified part of neck, initial encounter (principal); W22.8XXA Striking against or struck by other objects, initial encounter
CPT/HCPCS: 70450; 71260; 72125; 99285; Q9967

== ENCOUNTER → 2023-12-11 13:17 | Outpatient (BNVA) | payer MEDICAID, SELFPAY | PROVIDERS: PCP Family Medicine; Visit Provider Family Medicine | DX: A93.8 Other specified arthropod-borne viral fevers (principal) | CPT/HCPCS: 86003; 86008 ==

== ENCOUNTER → 2024-01-31 09:47 | Outpatient (BNVA) | payer MEDICAID, SELFPAY | PROVIDERS: PCP Family Medicine; Visit Provider Nurse Practitioner Family | DX: I49.8 Other specified cardiac arrhythmias (principal); R07.9 Chest pain, unspecified | CPT/HCPCS: 93005 ==

== ENCOUNTER 2024-02-29 08:22 | Outpatient (CLI) | payer MEDICAID, SELFPAY ==
--- NOTE | 2024-02-29 08:30 | USCV_ITS ---
Pierre Sigala Age: 58 Gender: M : 1965 Exam Date: 02/29/2024 08:42 Ordering Phys: Kylie Hernandez Technologist: [place] [facility] [place] Indication: htn BP: 198 / 100 HR: 63 Rhythm: Sinus Technical Quality: Adequate MEASUREMENTS (Male / Female) Normal Values 2D ECHO LVOT Diameter 2.3 cm LV Ejection Fraction MOD 4C 59.9 % LV Ejection Fraction MOD 2C 67.2 % LV Ejection Fraction 2C AL 69.8 % LA Diameter 3.6 cm RA Systolic Volume 4C AL 34.4 ml RA Systolic Volume 4C MOD 34.4 ml LA Sys Volume AL 52.4 cm cubed LA Sys Volume Index AL 22.6 cm cubed/m squared Aorta at Sinotubular Diameter 3.3 cm IVC Diameter 1.9 cm M-MODE LA Ao Ratio MM 1.0 AV Cusp Separation MM 2.0 cm DOPPLER AV Peak Velocity 295.0 cm/s LVOT Peak Velocity 70.0 cm/s AV Area Cont Eq vti 3.4 cm squared AV Area Cont Eq pk 1.0 cm squared MV Peak Velocity 75.0 cm/s MV Area PHT 3.0 cm squared Mitral E to A Ratio 0.5 TV Peak Velocity 119.0 cm/s TR Peak Velocity 127.0 cm/s TR Peak Gradient 6.5 mmHg TV Peak E Velocity 72.0 cm/s Right Atrial Pressure 3.0 mmHg Pulmonary Artery Systolic Pressu 9.5 mmHg PV Peak Velocity 96.0 cm/s FINDINGS Left Ventricle Left ventricle is normal in size. LV systolic function is normal with EF of 55 to 60%. No regional wall motion abnormalities are seen. Grade 1 diastolic dysfunction. Right Ventricle Normal in size and function Right Atrium Normal in size Left Atrium Normal in size Mitral Valve Structurally normal mitral valve. Mild mitral regurgitation. Aortic Valve Structurally normal aortic valve. Mild aortic regurgitation. No significant stenosis Tricuspid Valve Insufficient TR jet to evaluate RVSP. Pulmonic Valve Not well visualized Pericardium Normal Aorta Ascending aorta is dilated with diameter of 3.70cm IVC Appears to be normal CONCLUSIONS LV systolic function is normal with EF of 55-60% Grade 1 diastolic dysfunction Mild mitral regurgitation Mild aortic regurgitation Ascending aorta is dilated with diameter of 3.7cm Compared to prior echocardiogram from 2020, patient has mildly dilated ascending aorta. Fredo Camara MD (Electronically Signed) Final Date: 02 March 2024 14:07 S
== END 2024-02-29 08:23 | disposition home or self-care (01) ==
LOC: RAD 08:23
PROVIDERS: PCP Family Medicine; Visit Provider Nurse Practitioner Family
DX: I50.30 Unspecified diastolic (congestive) heart failure (principal); I77.819 Aortic ectasia, unspecified site; R07.9 Chest pain, unspecified; I10 Essential (primary) hypertension
CPT/HCPCS: 93306

== ENCOUNTER 2024-03-19 08:03 | Outpatient (CLI) | payer MEDICAID, SELFPAY ==
--- NOTE | 2024-03-19 08:19 | NMCV_ITS ---
NM lydia perf SPECT r/s* [id number] Pierre Sigala Age: 58 Gender: M : 1965 Exam Date: 03/19/2024 08:19 Ordering Phys: Kylie Hernandez Technologist: BI Taylor Exam Location: [facility] [place] Indications: cp STRESS TEST Please see separate stress test report in [facility] for full findings IMAGE PROTOCOL Rest/Stress 1 Lexiscan Day Radiopharmaceutical Dose (mCi) Administration Site Administered by Rest: Tc-99m 10.9 IV Elvira Craig TREE SPECIALIST Sestamibi Stress:Tc-99m 32.1 IV Elvira Craig, TREE SPECIALIST Sestamibi Rest: 19-Mar-2024 60 Discovery 630 Stress: 19-Mar-2024 30 Discovery 630 0.4mg Lexiscan. Images obtained in supine and prone position. SPECT RESULTS Technical Quality: Good Raw Data Analysis: Normal Image Corrections: No attenuation or motion correction applied Summed Stress Score: 0 Summed Rest Score: 2 Summed Difference Score: 0 PERFUSION FINDINGS SPECT images demonstrate homogeneous tracer distribution throughout the myocardium. FUNCTIONAL RESULTS (calculated via Gated SPECT) Stress Image LV EF (%): 79 Stress EDV (mL):107 TID: 0.8 Stress ESV (mL):23 FUNCTIONAL FINDINGS: There is normal left ventricular systolic function. IMPRESSIONS 1. Normal myocardial perfusion imaging with no evidence of ischemia 2. LV systolic function is normal Fredo Camara MD (Electronically Signed) Final Date: 19 March 2024 11:22 S
--- NOTE | 2024-03-19 08:19 | ECG_ITS ---
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 Interpretive Statements LEXISCAN SESTAMIBI STRESS TEST Procedure: At the baseline, the blood pressure was 170/125 mmHg with a heart rate of 63 bpm. The electrocardiogram showed normal sinus rhythm, normal axis with normal ST and T's. The Lexiscan was infused over a period of 20 seconds. A total of 0.4 mg of Lexiscan was infused. The stress phase was continued for a total of 5 minutes. Heart rate was at the end of stress phase was 79bpm and a blood pressure of 155/99 mmHg. The EKG at the peak infusion revealed normal sinus rhythm with no significant ST-T wave changes. Sestamibi was injected 20 seconds after the Lexiscan infusion. Blood pressure at the end of recovery phase was 159/99 mmHg with a heart rate of 76 bpm. Conclusion: 1. Normal EKG response to Lexiscan infusion 2. No Lexiscan induced chest pain or cardiac arrhythmia. 3. Normal blood pressure and heart rate response. 4. Sestamibi/sestamibi perfusion scan pending; see separate report. Electronically Signed On 03-24-2024 08:55:04 FELT CEMENTER by Fredo Camara M.D. [id number]
[2024-03-19 08:20] VITALS: BMI 32.1
[2024-03-19] MEDS: hyDRALAzine 20 mg/mL INJ 1 mL IVP (09:50)
[2024-03-19] MEDS: regadenoson 0.4 Mg/5 ml Syringe IVP (10:02)
--- NOTE | 2024-03-19 10:14 | PC.NURSE ---
The patients initial BP before starting stress test was 170/125. Yamel Hernandez NP was notified. Orders received to change WANDA to LMM and to administer Hydralazine. See MAR for administration. BP came down to 148/101. LMM was completed with discharge BP 154/99. The patient was instructed to take his home BP meds caryl. He voiced his understanding.
[2024-03-19 10:17] VITALS: BP 154/99; PULSE 73
== END 2024-03-19 08:04 | disposition home or self-care (01) ==
PROVIDERS: PCP Family Medicine; Visit Provider Nurse Practitioner Family
DX: R07.9 Chest pain, unspecified (principal)
CPT/HCPCS: 36415; 78452; 93017; 96374; 96375; A9500; J0360; J2785

== ENCOUNTER → 2024-05-05 09:02 | Outpatient (BNVA) | payer MEDICAID, SELFPAY | PROVIDERS: PCP Family Medicine; Visit Provider Family Medicine | DX: R07.81 Pleurodynia (principal) | CPT/HCPCS: 71101 ==

== ENCOUNTER → 2024-07-22 14:28 | Outpatient (BNVA) | payer MEDICAID, SELFPAY | PROVIDERS: PCP Family Medicine; Visit Provider Family Medicine | DX: G25.2 Other specified forms of tremor (principal); F10.10 Alcohol abuse, uncomplicated; I10 Essential (primary) hypertension; N28.9 Disorder of kidney and ureter, unspecified; K75.81 Nonalcoholic steatohepatitis (NASH); E03.9 Hypothyroidism, unspecified | CPT/HCPCS: 80053; 82607; 83735; 84443; 85025 ==

== ENCOUNTER 2024-08-18 06:00 | Outpatient (CLI) | payer MEDICAID, SELFPAY | END 2024-08-18 06:01 | disposition home or self-care (01) | PROVIDERS: PCP Family Medicine; Visit Provider Family Medicine | DX: F10.10 Alcohol abuse, uncomplicated (principal); K75.81 Nonalcoholic steatohepatitis (NASH); N28.9 Disorder of kidney and ureter, unspecified | CPT/HCPCS: 80053; 85025 ==

== ENCOUNTER 2024-08-20 10:00 | Outpatient (CLI) | payer OTHER, SELFPAY ==
--- NOTE | 2024-08-20 10:08 | XR_ITS ---
WS: [id number] Exam: XR lumbar spine 2-3V* [id number] Date/Time of Exam: 08/20/2024 10:13 AM Reason For Exam: OA Comparison 12/26/2016. No fracture. Degenerative narrowing of the L5-S1 disc. Spondylosis. Facet DJD at L4-5 and L5-S1. Mild dextroscoliosis. XR/XR lumbar spine 2-3V* [id number] IMPRESSION: 1. Degenerative changes of the lower lumbar spine. No fracture or malalignment. Mild scoliosis.
== END 2024-08-20 10:01 | disposition home or self-care (01) ==
LOC: RAD 10:02
PROVIDERS: PCP Family Medicine; Visit Provider Family Medicine
DX: Z02.71 Encounter for disability determination (principal); M47.896 Other spondylosis, lumbar region; M47.897 Other spondylosis, lumbosacral region; M41.86 Other forms of scoliosis, lumbar region
CPT/HCPCS: 72100

== ENCOUNTER → 2024-10-15 08:53 | Outpatient (BNVA) | payer MEDICAID, SELFPAY | PROVIDERS: PCP Family Medicine; Visit Provider Family Medicine | DX: F10.10 Alcohol abuse, uncomplicated (principal); K75.81 Nonalcoholic steatohepatitis (NASH); R74.8 Abnormal levels of other serum enzymes; N28.9 Disorder of kidney and ureter, unspecified | CPT/HCPCS: 80053; 85025 ==

== ENCOUNTER → 2025-01-16 10:39 | Outpatient (BNVA) | payer MEDICAID, SELFPAY | PROVIDERS: PCP Family Medicine; Visit Provider Family Medicine | DX: R74.8 Abnormal levels of other serum enzymes (principal); N28.9 Disorder of kidney and ureter, unspecified | CPT/HCPCS: 80053 ==

== ENCOUNTER → 2025-03-19 10:00 | Outpatient (BNVA) | payer MEDICAID, SELFPAY | PROVIDERS: PCP Family Medicine; Visit Provider Family Medicine | DX: F10.10 Alcohol abuse, uncomplicated (principal); F41.9 Anxiety disorder, unspecified; K75.81 Nonalcoholic steatohepatitis (NASH); R74.8 Abnormal levels of other serum enzymes; N28.9 Disorder of kidney and ureter, unspecified; E03.9 Hypothyroidism, unspecified | CPT/HCPCS: 80053; 80307; 82607; 82746; 85025; 86140 ==